=== PATIENT | male | born 1980 | race Caucasian/White ===

== ENCOUNTER 2018-08-25 20:14 | Emergency (ER) | payer OTHER ==
[2018-08-26] MEDS ORDERED: LIDOCAINE 1% INJ (10 MG/ML) 10 ML MDV INJ ONE (01:32)
[2018-08-26] MEDS ORDERED: BUPIVACAINE HCL 0.5 % INJ/PF 30 ML SDV INJ ONE (01:32)
[2018-08-26] MEDS ORDERED: DIPH/PERTUSS(ACELL)/TETANUS VAC/PF 0.5 ML SYR (>=10YO) IM ONE (01:42)
[2018-08-26] MEDS ORDERED: DOXYCYCLINE HYCLATE 100 MG TABLET PO ONE (01:43)
--- NOTE | 2018-08-26 01:45 | ER Document Report ---
ED Foreign Body - General Chief Complaint: Hand Injury Stated Complaint: HAND INJURY Time Seen by Provider: 08/26/18 01:31 Notes: Patient is a 37-year-old male that comes to the emergency department for chief complaint of fishhook injury with embedded fishhook in the left fifth digit. He states that he tried to get it out but could not. 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 This happened just prior to arrival. He is not up-to-date on his tetanus within 5 years. He denies any other injuries or complaints. He takes no daily medications. - Related Data Allergies/Adverse Reactions: No Known Allergies Allergy (Unverified 08/26/18 02:56) Past Medical History - General Information source: Patient - Social History Smoking Status: Current Every Day Smoker Frequency of alcohol use: None Drug Abuse: None Lives with: Alone Family History: Reviewed & Not Pertinent - Medical History Medical History: Negative Surgical Hx: Negative - Immunizations Immunizations up to date: No Hx Diphtheria, Pertussis, Tetanus Vaccination: Yes Review of Systems - Review of Systems Constitutional: No symptoms reported EENT: No symptoms reported Cardiovascular: No symptoms reported Respiratory: No symptoms reported Gastrointestinal: No symptoms reported Genitourinary: No symptoms reported Male Genitourinary: No symptoms reported Musculoskeletal: See HPI Skin: See HPI Hematologic/Lymphatic: No symptoms reported Neurological/Psychological: No symptoms reported Physical Exam - Vital signs Vitals: Temp Pulse Resp BP Pulse Ox 97.7 F 59 L 12 130/70 H 100 08/25/18 20:42 08/25/18 20:42 08/25/18 20:42 08/25/18 20:42 08/25/18 20:42 - Notes Notes: GENERAL: Alert, interacts well. No acute distress. HEAD: Normocephalic, atraumatic. EYES: Pupils equal, round, and reactive to light. Extraocular movements intact. ENT: Oral mucosa moist, tongue midline. Oropharynx unremarkable. Airway patent. Nares patent, no nasal septal hematoma, TM's intact. NECK: Full range of motion. Supple. Trachea midline. LUNGS: Clear to auscultation bilaterally, no wheezes, rales, or rhonchi. No respiratory distress. HEART: Regular rate and rhythm. No murmur ABDOMEN: Soft, non-tender. Non-distended. Bowel sounds present in all 4 quadrants. GENITOURINARY: Deferred EXTREMITIES: [place] embedded in the distal aspect of the left hand in the fifth digit, range of motion of the fingers intact, sensation intact, capillary refill intact, otherwise unremarkable exam. BACK: no cervical, thoracic, lumbar midline tenderness. No saddle anesthesia, normal distal neurovascular exam. NEUROLOGICAL: Alert and oriented x3. Normal speech. [cranial nerves II through XII grossly intact]. PSYCH: Normal affect, normal mood. SKIN: Warm, dry, normal turgor. No rashes or lesions noted. Course - Re-evaluation Re-evalutation: 08/26/18 06:00 X-ray showing no bony involvement, the hook was long and embedded well, after digital block was performed I was unable to advance and remove this, I had to make an incision with the scalpel before this could be removed. This stopped bleeding quickly. Placed on antibiotics, updated tetanus, discussed followup a nd strict return precautions. Patient states understanding and agreement with plan. - Vital Signs Vital signs: Temp Pulse Resp BP Pulse Ox 98.2 F 72 20 128/69 H 99 08/26/18 02:42 08/26/18 02:42 08/26/18 02:42 08/26/18 02:42 08/26/18 02:42 Procedures - Additional Procedures Foreign body removal Additional Procedures: Other Discharge - Discharge Clinical Impression: Fish hook injury of finger of left hand Qualifiers: Encounter type: initial encounter Qualified Code(s): S69.92XA - Unspecified injury of left wrist, hand and finger(s), initial encounter Condition: Stable Disposition: HOME, SELF-CARE Additional Instructions: [place] has been removed. X-ray did not show bony injury. Keep clean, clean with soap and water, keep clean dressing over the area. Take the doxycycline antibiotic as prescribed to completion. Your tetanus was updated today. Follow-up with primary care. Return for any concerning symptoms including developing or spreading redness, discolored discharge, fever, or any other concerning or worsening symptoms. Prescriptions: Doxycycline Hyclate 100 mg PO BID 5 Days #10 capsule Forms: Return to Work
--- NOTE | 2018-08-26 02:06 | RADIOLOGY REPORT (SQ) ---
EXAM DESCRIPTION: XR FINGERS COMPLETED DATE/TME: 08/26/2018 01:31 CLINICAL HISTORY: 37 years, Male, large fish hook injury; fracture? COMPARISON: None. NUMBER OF VIEWS: 3 TECHNIQUE: 3 views of the left fifth digit LIMITATIONS: None. FINDINGS: [place] within the soft tissues of the distal fifth digit. However negative for acute fracture. Joint spaces are preserved IMPRESSION: [place] distally. No acute osseous abnormality copyright 2010 [employer]- All Rights Reserved
[2018-08-26 02:58] VITALS: BP 128/69
== END 2018-08-26 02:42 | disposition home or self-care (01) ==
LOC: ER 20:14
DX: S61.247A Puncture wound with foreign body of left little finger without damage to nail, initial encounter (principal); W45.8XXA Other foreign body or object entering through skin, initial encounter; Y92.89 Other specified places as the place of occurrence of the external cause; F17.200 Nicotine dependence, unspecified, uncomplicated; Z23 Encounter for immunization
CPT/HCPCS: 90715; 99283